=== PATIENT | female | born 1955 | race American Indian/Alaskan Native ===

== ENCOUNTER 2019-03-03 22:48 | Inpatient (IN) | payer OTHER ==
[2019-03-03 23:44] LABS: Basophils % (Auto) 0.4 % (0.0-1.8); Eosinophils # (Auto) 0.2 K/mm3 (0.0-0.4); Eosinophils % (Auto) 2.7 % (0.0-4.3); Hematocrit 40.4 % (30.3-42.9); Hemoglobin 13.3 gm/dl (10.1-14.3); Lymphocytes # (Auto) 1.6 K/mm3 (1.2-5.4); Lymphocytes % (Auto) 18.2 % (13.4-35.0); Mean Corpuscular HGB Conc 33 % (30-34); Mean Corpuscular Volume 84 fl (79-97); Monocytes # (Auto) 0.2 K/mm3 (0.0-0.8); Monocytes % (Auto) 2.5 % (0.0-7.3); Platelet Count 262 K/mm3 (140-440); Red Blood Count 4.79 M/mm3 (3.65-5.03); Red Cell Distribution Width 16.7 % (13.2-15.2)
--- NOTE | 2019-03-03 23:53 | XRay Report ---
CHEST 1 VIEW 03/03/2019 11:19 PM INDICATION / CLINICAL INFORMATION: Dyspnea. COMPARISON: None available. FINDINGS: SUPPORT DEVICES: None. HEART / MEDIASTINUM: No significant abnormality. LUNGS / PLEURA: Generalized bilateral pulmonary opacities are seen without a significant pleural effu kary or pneumothorax. ADDITIONAL FINDINGS: No significant additional findings. IMPRESSION: Bilateral pulmonary opacities may represent edema or pneumonia. Please correlate with the clinical fi ndings. Signer Name: Benito Glaser MD Signed: 03/03/2019 11:48 PM Workstation Name: [id number]
[2019-03-04 00:06] LABS: Calcium 8.7 mg/dL (8.4-10.2)
[2019-03-04] MEDS ORDERED: FUROSEMIDE 40 MG/4 ML INJ IV ONE (00:24)
[2019-03-04] MEDS ORDERED: AZITHROMYCIN 500 MG in SODIUM CHLORIDE 0.9% 250ML 250 ML IV SCH (00:24)
[2019-03-04] MEDS ORDERED: cefTRIAXone/NS 2 GM/100 ML 2 GM/100 ML BAG IV SCH (00:24)
[2019-03-04] MEDS ORDERED: cefTRIAXone/NS 1 GM/50 ML 1 GM/50 ML BAG IV ONE ×2 (01:33→01:47)
[2019-03-04] MEDS ORDERED: FUROSEMIDE 40 MG/4 ML INJ ONE (01:41)
--- NOTE | 2019-03-04 01:52 | Emergency Department Report ---
ED Shortness of Breath HPI - General Chief Complaint: Dyspnea/Respdistress Stated Complaint: YINKA Time Seen by Provider: 03/03/19 23:13 Source: patient, family, EMS Mode of arrival: Stretcher Limitations: No Limitations - History of Present Illness Initial Comments: Mrs. Charles is a very pleasant 63 yo female with hx of HTN, bronchitis who presents wtih severe shortness of breath necessitating transport by EMS. Per at the bedside, she's had 3-4 weeks of congestion and wheezing at night when she lays flat. Today she has coughed up pinkish sputum. Denies chest pain. Denies leg swelling. She does not have a history of cardiac disease. Sh valentina was told that the bottom of her heart is stiff from years of hypertension. She was admitted at OSH in September for acute bronchitis. She stopped smoking tobacco 15 years ago. Blood pressure has not been well controlled. Her systolic blood pressure is normally in the 180 range. She was found to be hypoxic according to EMS. She required nonrebreather for oxygenation. She received albuterol magnesium and Solu-Medrol per EMS with mild improvement of symptoms. MD Complaint: shortness of breath, cough -: Gradual, week(s) (3-4) Severity: severe Consistency: constant Improves With: bronchodilators, upright position Worsens With: lying flat, exertion Known History Of: other (hypertension and "bronchitis") Context: other (congestion for the past 3-4 weeks) Associated Symptoms: cough, sputum production - Related Data Home Medications Medication Instructions Recorded Confirmed Last Taken Lisinopril [Zestril TAB] 1 tab PO DAILY 03/03/19 03/03/19 Unknown Metoprolol Xl [Metoprolol 1 tab PO DAILY 03/03/19 03/03/19 Unknown SUCCINATE ER TAB] Pravastatin [Pravachol] 20 mg PO QHS 03/03/19 03/03/19 Unknown Allergies Allergy/AdvReac Type Severity Reaction Status Date / Time Sulfa (Sulfonamide Allergy Rash Verified 03/04/19 00:11 Antibiotics) ED Review of Systems ROS: Stated complaint: YINKA Other details as noted in HPI Comment: All other systems reviewed and negative Constitutional: denies: fever, malaise Respiratory: cough, shortness of breath, wheezing Cardiovascular: dyspnea on exertion, orthopnea. denies: chest pain Gastrointestinal: denies: abdominal pain, nausea, vomiting ED Past Medical Hx - Past Medical History Previous Medical History?: Yes Hx Hypertension: Yes Additional medical history: high cholesterol, bronchitis - Surgical History Additional Surgical History: , carpal tunnel, thumb surgery - Family History Family history: hypertension - Social History Smoking Status: Former Smoker - Medications Home Medications: Home Medications Medication Instructions Recorded Confirmed Last Taken Type Lisinopril [Zestril TAB] 1 tab PO DAILY 03/03/19 03/03/19 Unknown History Metoprolol Xl [Metoprolol 1 tab PO DAILY 03/03/19 03/03/19 Unknown History SUCCINATE ER TAB] Pravastatin [Pravachol] 20 mg PO QHS 03/03/19 03/03/19 Unknown History ED Physical Exam - General Limitations: No Limitations General appearance: alert, in distress, other (speaking in broken sentences with obvious work of breathing) - Head Head exam: Present: atraumatic, normocephalic - Eye Eye exam: Present: normal appearance - ENT ENT exam: Present: mucous membranes moist - Neck Neck exam: Present: normal inspection, full ROM - Respiratory Respiratory exam: Present: respiratory distress, rales, rhonchi, other (loud Rales and rhonchi diffuse in all lung regions). Absent: wheezes - Cardiovascular Cardiovascular Exam: Present: regular rate, normal rhythm, normal heart sounds. Absent: systolic murmur, diastolic murmur, rubs, gallop - GI/Abdominal GI/Abdominal exam: Present: soft, normal bowel sounds. Absent: distended, tenderness, guarding, rebound - Extremities Exam Extremities exam: Present: normal inspection - Neurological Exam Neurological exam: Present: alert, oriented X3 - Psychiatric Psychiatric exam: Present: normal affect, normal mood - Skin Skin exam: Present: warm, dry, intact, normal color. Absent: rash ED Course Vital Signs 03/03/19 03/03/19 03/03/19 23:12 23:13 23:15 Temperature Pulse Rate 81 86 Respiratory 25 H 22 28 H Rate Blood Pressure 177/87 176/86 O2 Sat by Pulse 86 89 90 Oximetry 03/03/19 03/03/19 03/03/19 23:20 23:23 23:25 Temperature 98.1 F Pulse Rate 74 Respiratory 29 H Rate Blood Pressure 176/86 O2 Sat by Pulse 84 98 Oximetry 03/03/19 03/03/19 03/03/19 23:29 23:30 23:45 Temperature Pulse Rate 73 76 74 Respiratory 31 H 26 H 29 H Rate Blood Pressure 176/86 169/97 183/96 O2 Sat by Pulse 98 98 93 Oximetry 03/04/19 03/04/19 03/04/19 00:00 00:15 00:30 Temperature Pulse Rate 75 71 73 Respiratory 22 35 H 35 H Rate Blood Pressure 150/91 190/100 187/108 O2 Sat by Pulse 94 93 94 Oximetry 03/04/19 03/04/19 03/04/19 00:45 01:01 01:15 Temperature Pulse Rate 72 76 Respiratory 34 H 34 H 14 Rate Blood Pressure 193/103 218/112 187/108 O2 Sat by Pulse 96 99 97 Oximetry ED Medical Decision Making - Lab Data Result diagrams: 03/03/19 23:21 03/03/19 23:21 - EKG Data 03/04/19 01:58 EKG revealed normal sinus rhythm rate 70 beats normal axis normal intervals nonspecific T wave pattern no ST elevation - Radiology Data Radiology results: report reviewed Chest radiograph: According to my interpretation and the radiologist's significant amount of pulmonary edema with diffuse bilateral opacities throughout the lungs no vidhya infiltrate moderate cardiomegaly - Medical Decision Making Acute respiratory failure and hypoxia due to new-onset congestive heart failure. From patient's history appears that she had known diastolic dysfunction without definite diagnosis of CHF. I have covered patient for community acquired pneumonia. She received first dose of furosemide for diuresis. Admitted to the hospitalist service service in fair condition with NIPPV as necessary . Critical Care Time: Yes Critical care attestation.: If time is entered above; I have spent that time in minutes in the direct care of this critically ill patient, excluding procedure time. 40 minute of critical care time excluding procedures were used in the care of the patient. I came to the bedside immediately. I spoke with EMS to obtain history. I obtained history from patient's at the bedside. I directed resuscitation with treatment nurse at the bedside. I Immediately attempted to wean down oxygen supplementation from nonrebreather to nasal cannula. On nasal cannula patient had profound hypoxia 82% on pulse oximetry. I requested noninva sive positive pressure ventilation. Patient required multiple interventions and reassessment. I was concerned for worsening respiratory failure. ED Disposition Clinical Impression: Acute respiratory failure with hypoxia, New onset of congestive heart failure Disposition: OP ADMIT IP TO THIS HOSP Is pt being admited?: Yes Does the pt Need Aspirin: No
[2019-03-04] MEDS ORDERED: MORPHINE 2 MG/1 ML INJ IV PRN (02:57)
[2019-03-04] MEDS ORDERED: ONDANSETRON 4 MG/2 ML INJ IV PRN (02:57)
[2019-03-04] MEDS ORDERED: ALBUTEROL 2.5 MG/3 ML NEBU IH PRN (02:57)
[2019-03-04] MEDS: ACETAMINOPHEN 325 MG TAB PO PRN ×2 (06:31→20:25)
[2019-03-04] MEDS: HEPARIN 5,000 UNIT/1 ML VIAL SUB-Q SCH ×3 (06:32→21:09)
[2019-03-04 09:21] LABS: BUN/Creatinine Ratio 20; Blood Urea Nitrogen 20 mg/dL (7-17); Calcium 8.5 mg/dL (8.4-10.2); Hemolysis Index 7
[2019-03-04] MEDS ORDERED: METOPROLOL SUCCINATE XL 100 MG TAB PO SCH ×4 (10:00→11:00)
[2019-03-04] MEDS ORDERED: LISINOPRIL 40 MG TAB PO SCH (10:00)
--- NOTE | 2019-03-04 10:02 | History and Physical Report ---
History of Present Illness Date of examination: 03/04/19 Date of admission: 03/04/19 01:15 Chief complaint: Shortness of breath. History of present illness: 63 year old female with known history of hypertension presenting to the ER via EMS with severe shortness of breath today. She denies any fever, no chills. She had some cough productive of some pinkish phlegm. She denies chest pain. Upon arrival in the Er she was found to be hypoxic with oxygen saturation of 82% nasal Cannula. She was subsequently placed on BIPAP and given nebulizing treatment and steroid with some improvement. Herchest x-ray was suggestive of pulmonary edema vs pneumonia. Past History Past Medical History: hypertension Past Surgical History: , Other (Right thumb surgery,carpal rena surgery) Social history: smoking (Quit tobacco use 15years ago) Family history: diabetes, hypertension Medications and Allergies Allergies Allergy/AdvReac Type Severity Reaction Status Date / Time Sulfa (Sulfonamide Allergy Rash Verified 03/04/19 00:11 Antibiotics) Home Medications Medication Instructions Recorded Confirmed Last Taken Type Lisinopril [Zestril TAB] 1 tab PO DAILY 03/03/19 03/03/19 Unknown History Metoprolol Xl [Metoprolol 1 tab PO DAILY 03/03/19 03/04/19 03/03/19 09:00 History SUCCINATE ER TAB] Pravastatin [Pravachol] 20 mg PO QHS 03/03/19 03/04/19 03/03/19 09:00 History Zolpidem [Ambien] 10 mg PO QHS 03/04/19 03/04/19 03/02/19 21:00 History Active Meds: Active Medications Acetaminophen (Tylenol) 650 mg PO Q4H PRN PRN Reason: Pain MILD(1-3)/Fever >100.5/PERERA Last Admin: 03/04/19 06:31 Dose: 650 mg Documented by: Albuterol (Proventil) 2.5 mg IH Q4HRT PRN PRN Reason: Shortness Of Breath Heparin Sodium (Porcine) (Heparin) 5,000 unit SUB-Q Q8HR DANIA Last Admin: 03/04/19 06:32 Dose: 5,000 unit Documented by: Hydralazine HCl (Apresoline) 10 mg IV Q4HR PRN PRN Reason: Blood Pressure Ceftriaxone Sodium (Rocephin/Ns 2 Gm/100 Ml) 2 gm in 100 mls @ 200 mls/hr IV Q24HR@2200 DANIA; Protocol Last Admin: 03/04/19 01:35 Dose: 200 mls/hr Documented by: Azithromycin 500 mg/ Sodium (Chloride) 250 mls @ 250 mls/hr IV Q24HR@2200 DANIA; Protocol Last Admin: 03/04/19 03:06 Dose: 250 mls/hr Documented by: Lisinopril (Zestril) mg PO DAILY [facility] Metoprolol Succinate (Metoprolol Xl) mg PO DAILY [facility] Morphine Sulfate (Morphine) 2 mg IV Q4H PRN PRN Reason: Pain, Moderate (4-6) Ondansetron HCl (Zofran) 4 mg IV Q8H PRN PRN Reason: Nausea And Vomiting Pravastatin Sodium (Pravachol) 20 mg PO QHS [facility] Sodium Chloride (Sodium Chloride Flush Syringe 10 Ml) 10 ml IV BID [facility] Sodium Chloride (Sodium Chloride Flush Syringe 10 Ml) 10 ml IV PRN PRN PRN Reason: LINE FLUSH Zolpidem Tartrate (Ambien) 10 mg PO QHS [facility] Review of Systems Respiratory: cough with sputum, congestion Exam - Constitutional Vitals: Temp Pulse Resp BP Pulse Ox 99.1 F 75 18 171/94 93 03/04/19 08:00 03/04/19 08:00 03/04/19 08:00 03/04/19 08:00 03/04/19 08:00 General appearance: Present: no acute distress, well-nourished - EENT Eyes: Present: PERRL, EOM intact ENT: hearing intact, clear oral mucosa, dentition normal - Neck Neck: Present: supple, normal ROM - Respiratory Respiratory effort: normal Respiratory: bilateral: rales - Cardiovascular Rhythm: regular Heart Sounds: Present: S1 & S2 - Extremities Extremities: no ischemia, Full ROM Extremity abnormal: edema (trace ankle edema bilaterally) Peripheral Pulses: within normal limits - Integumentary Integumentary: Present: clear, warm, dry - Musculoskeletal Musculoskeletal: strength equal bilaterally - Psychiatric Psychiatric: appropriate mood/affect, intact judgment & insight - Neurologic Neurologic: CNII-XII intact, moves all extremities Results - Labs CBC & Chem 7: 03/03/19 23:21 03/04/19 08:39 Labs: Abnormal lab results 03/03/19 03/03/19 03/03/19 Range/Units 23:21 23:21 23:21 RDW 16.7 H (13.2-15.2) % Seg Neutrophils % 76.2 H (40.0-70.0) % POC ABG pO2 (80-105) Potassium 3.2 L (3.6-5.0) mmol/L BUN 20 H (7-17) mg/dL Glucose 134 H (65-100) mg/dL NT-Pro-B Natriuret Pep 1021 H (0-900) pg/mL 03/04/19 03/04/19 Range/Units 02:10 08:39 RDW (13.2-15.2) % Seg Neutrophils % (40.0-70.0) % POC ABG pO2 60 L (80-105) Potassium 3.4 L (3.6-5.0) mmol/L BUN 20 H (7-17) mg/dL Glucose 199 H (65-100) mg/dL NT-Pro-B Natriuret Pep (0-900) pg/mL Assessment and Plan - Patient Problems (1) Acute respiratory failure with hypoxia Current Visit: Yes Status: Acute Plan to address problem: Etiology unclear. Probably secondary to CHF vs Pneumonia She has been started on empiric IV antibiotics Will consult Telephone Interceptor Operator for evaluation and recommendation. (2) New onset of congestive heart failure Current Visit: Yes Status: Acute Plan to address problem: Will monitor daily weight. Schedule for echocardiogram (3) DVT prophylaxis Current Visit: Yes Status: Acute Plan to address problem: Placed on SQ heparin. (4) Full code status Current Visit: Yes Status: Acute
--- NOTE | 2019-03-04 10:40 | Event Note ---
Date: 03/04/19 Chart Reviewed and spoke with nursing. Patients history is most consistent with likely diastolic heart failure. Her CXR is consistent with pulmonary edema and given severely elevated BP's on admission as well as cough productive of "pinkish sputum", most likely from Hypertensive Emergency. This is not pneumonia. She could very well have underlying lung disease but needs BP control and extensive diuresis prior to formal eval which can be done as an outpatient. Suggest more lasix therapy today and repeat CXR. Will sign off. I did stop abx therapy.
[2019-03-04] MEDS: LISINOPRIL 40 MG TAB PO SCH (10:52)
[2019-03-04] MEDS ORDERED: POTASSIUM CHLORIDE ER 20 MEQ TAB PO SCH (12:59)
--- NOTE | 2019-03-04 13:03 | Event Note ---
Date: 03/04/19 Pt admitted for acute pul edema, probably 2/2 new onset CHF on IV Lasix. PNA less likely. F/U echo and hba1c level for the hyperglycemia
[2019-03-04] MEDS: FUROSEMIDE 40 MG/4 ML INJ IV SCH (17:53)
[2019-03-04] MEDS: hydrALAZINE 20 MG/1 ML INJ IV PRN (21:08)
[2019-03-04] MEDS ORDERED: PRAVASTATIN 20 MG TAB PO SCH (22:00)
[2019-03-04] MEDS ORDERED: ZOLPIDEM 5 MG TAB PO SCH (22:00)
[2019-03-04] MEDS ORDERED: NON-FORMULARY EACH (Zolpidem 10 MG) PO SCH (22:00)
[2019-03-05 05:03] LABS: Basophils % (Auto) 0.2 % (0.0-1.8); Eosinophils # (Auto) 0.1 K/mm3 (0.0-0.4); Eosinophils % (Auto) 0.4 % (0.0-4.3); Hematocrit 36.2 % (30.3-42.9); Hemoglobin 11.7 gm/dl (10.1-14.3); Lymphocytes # (Auto) 2.5 K/mm3 (1.2-5.4); Lymphocytes % (Auto) 18.3 % (13.4-35.0); Mean Corpuscular HGB Conc 33 % (30-34); Mean Corpuscular Volume 83 fl (79-97); Monocytes # (Auto) 0.8 K/mm3 (0.0-0.8); Monocytes % (Auto) 6.1 % (0.0-7.3); Platelet Count 256 K/mm3 (140-440); Red Blood Count 4.33 M/mm3 (3.65-5.03); Red Cell Distribution Width 16.4 % (13.2-15.2)
[2019-03-05 05:15] LABS: INR 1.2 (0.87-1.13)
[2019-03-05 05:16] LABS: Partial Thromboplastin Time 26.4 Sec. (24.2-36.6)
[2019-03-05 05:22] LABS: BUN/Creatinine Ratio 24; Blood Urea Nitrogen 24 mg/dL (7-17); Calcium 8.6 mg/dL (8.4-10.2); Hemolysis Index 3
[2019-03-05] MEDS: FUROSEMIDE 40 MG/4 ML INJ IV SCH ×2 (05:36→17:01)
[2019-03-05] MEDS: HEPARIN 5,000 UNIT/1 ML VIAL SUB-Q SCH ×2 (05:37→13:33)
[2019-03-05] MEDS: ACETAMINOPHEN 325 MG TAB PO PRN ×2 (08:00→16:52)
[2019-03-05] MEDS: LISINOPRIL 40 MG TAB PO SCH (09:01)
[2019-03-05] MEDS ORDERED: METOPROLOL SUCCINATE XL 100 MG TAB PO SCH (10:00)
[2019-03-05] MEDS: hydrALAZINE 20 MG/1 ML INJ IV PRN (13:44)
[2019-03-05 13:45] VITALS: BP 177/79
[2019-03-06] MEDS ORDERED: FLU VACC QUAD 2019-20 (3 YR UP)/PF 60 MCG/0.5 ML SYRINGE IM ONE (12:00)
--- NOTE | 2019-03-06 12:02 | Discharge Summary ---
Providers - Providers Date of Admission: 03/04/19 01:15 Date of discharge: 03/06/19 Attending physician: SAMANTA CLINE Hospitalization Condition: Good Hospital course: 63 year old female with known history of hypertension presenting to the ER via EMS with severe shortness of breath today. She denies any fever, no chills. She had some cough productive of some pinkish phlegm. She denies chest pain. Upon arrival in the ER she was found to be hypoxic with oxygen saturation of 82% nasal Cannula. She was subsequently placed on BIPAP and given nebulizing treatment and steroid with some improvement. Her chest x-ray was suggestive of pulmonary edema vs pneumonia. (1) Acute respiratory failure with hypoxia Current Visit: Yes Status: Acute Plan to address problem: Sec to Hypertensive emergency and Flash pulmonary edema. Improved (2) New onset of congestive heart failure Current Visit: Yes Status: Acute Plan to address problem: Echocardiogram--Showed 55 to 60 percent EF Will discharge on Diretics-HCTZ 25 mg po qd and kcl 10 po qd (3)Hypertensive Emergency Added procardia XL 60 mg po qd F/u with PCP and Cardiolgy Discussed the diagnosis at length with the patientand she understands the importance of follow up. Disposition: DC-01 TO HOME OR SELFCARE Core Measure Documentation - Palliative Care Palliative Care/ Comfort Measures: Not Applicable - Core Measures Any of the following diagnoses?: heart failure - Heart Failure Discharge Requirements BILLY/ARB for LVSD if EF <40%: Yes Beta jennifer at discharge: Yes Exam - Constitutional Vitals: Temp Pulse Resp BP Pulse Ox 97.4 F L 66 18 177/79 97 03/05/19 08:09 03/05/19 13:44 03/05/19 08:37 03/05/19 13:44 03/05/19 08:37 General appearance: Present: no acute distress, well-nourished - EENT Eyes: Present: PERRL ENT: hearing intact, clear oral mucosa - Neck Neck: Present: supple, normal ROM - Respiratory Respiratory effort: normal Respiratory: bilateral: CTA - Cardiovascular Heart rate: 78 Rhythm: regular Heart Sounds: Present: S1 & S2. Absent: rub, click - Extremities Extremities: no ischemia, pulses intact, pulses symmetrical, No edema Peripheral Pulses: within normal limits - Abdominal General gastrointestinal: Present: soft, non-tender, non-distended, normal bowel sounds Female genitourinary: Present: normal - Integumentary Integumentary: Present: clear, warm, dry - Musculoskeletal Musculoskeletal: gait normal, strength equal bilaterally - Psychiatric Psychiatric: appropriate mood/affect, intact judgment & insight - Neurologic Neurologic: CNII-XII intact, moves all extremities Plan Activity: no restrictions Diet: low fat, low cholesterol, low salt Follow up with: [facility] [Other] - 7 Days Forms: Work/School Release Form Prescriptions: hydroCHLOROthiazide [HCTZ] 25 mg PO QDAY #30 tablet Potassium Chloride [K-Dur] 10 meq PO QDAY #30 tablet Metoprolol Xl [Metoprolol SUCCINATE ER TAB] 1 tab PO DAILY #30 Pravastatin [Pravachol] 20 mg PO QHS #30 tablet ALBUTEROL Inhaler (OR & NICU) [ProAir HFA Inhaler] 2 puff IH QID PRN #8.5 gram PRN Reason: Shortness Of Breath NIFEdipine XL [Procardia Xl] 60 mg PO QDAY #30 tablet Lisinopril [Zestril TAB] 40 mg PO DAILY #30 tablet
== END 2019-03-05 18:00 | disposition home or self-care (01) | DRG 291 ==
LOC: ED 22:48 → 4A 03-04 01:15
PROVIDERS: ADMIT Internal Medicine Geriatric Medicine; ATTEND Internal Medicine
PROC: 5A09357 Assistance with Respiratory Ventilation, Less than 24 Consecutive Hours, Continuous Positive Airway Pressure (ICD-10-PCS; 2019-03-03)
PROC: 4A033R1 Measurement of Arterial Saturation, Peripheral, Percutaneous Approach (ICD-10-PCS; principal; 2019-03-04)
DX: I11.0 Hypertensive heart disease with heart failure (principal); J96.01 Acute respiratory failure with hypoxia; I16.1 Hypertensive emergency; I50.9 Heart failure, unspecified; E78.00 Pure hypercholesterolemia, unspecified; Z82.49 Family history of ischemic heart disease and other diseases of the circulatory system; Z83.3 Family history of diabetes mellitus; Z88.2 Allergy status to sulfonamides; Z87.891 Personal history of nicotine dependence
CPT/HCPCS: 36415; 71045; 80048; 80053; 82140; 82803; 83036; 83735; 83880; 84484; 85025; 85610; 85730; 87040; 93005; 93010; 93306; 94760; 96365; 96375; G0378; A9270-GY; J0360; J0456; J0696; J1644; J1940; J7050